=== PATIENT | male | born 1945 | race African-American/Black ===

== ENCOUNTER 2017-01-08 20:16 | Emergency (ER) | payer MEDICARE ==
--- NOTE | ~2017-01-08 | CR94 ---
[facility] A Service of [facility] RADIOLOGY TEXT RESULTS PATIENT: IVETH PORRAS NMI LOCATION: CFTX : 45 UNIT #: [id number] AGE: [address]: MARIO HEBERT APRN SEX: M ORDER DR: [id number] [facility] [address] [facility]. [place], [place] [address] [id number] E MR#: [id number] Acc #: [id number] NAME: IVETH PORRAS NMI : 1945 SEX: M STUDY DATE/TIME: 01/08/2017 20:23 UNIT: [facility] ROOM: STUDY DESCRIPTION: CR Elbow Min 3 Views Rt Attending Physician: Mario Hebert Aprn Ordering Physician: Mario Hebert Aprn Primary Care Physician: No Primary Care Physician MEDICAL IMAGING REPORT This report is preliminary unless electronic signature is present EXAM Right elbow 3 views HISTORY Elbow pain onset last night. No known injury. FINDINGS 3 views of the right elbow demonstrates moderately advanced osteoarthritic change of the elbow with prominent osteophytes about the radial head also has prominent osteophytes off the distal humerus as well as osteophytes proximal olecranon. No fracture dislocation. No definite joint effusion. No significant soft tissue swelling. 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 No definite acute findings. One could question mild displacement of the anterior and posterior fat pads which could indicate a small amount of joint fluid. Dictated by... Erin Lopez M.D. THIS IS AN ELECTRONICALLY VERIFIED REPORT Erin Lopez M.D. at 01/09/2017 10:52 PM Burton TD: 01/09/2017 11:56 JOB #: [id number] MEDICAL IMAGING REPORT Page 1 of 1 COPY
[~2017-01-08 20:16] MED LIST: COLCHICINE PO; COLCRYS0.6 MG PO; KETOPROFEN PO; LORTAB 5/500 TA1 TA1 PO; TYLOX 5/500 CAP1 CAP PO
== END 2017-01-08 22:13 | disposition home or self-care (01) ==
LOC: CFTX 20:16
DX: M19.021 Primary osteoarthritis, right elbow (principal); I50.9 Heart failure, unspecified; I10 Essential (primary) hypertension; Z96.643 Presence of artificial hip joint, bilateral
CPT/HCPCS: 73080; 84550; 99283